=== PATIENT | male | born 1990 | race Caucasian/White ===

== ENCOUNTER 2020-09-28 16:16 | Emergency (ER) | payer BC, OTHER ==
[~2020-09-28] VITALS: Ht 177.8 cm; Wt 72.7 kg
[2020-09-28 19:25] VITALS: BP 115/69
== END 2020-09-28 19:26 | disposition home or self-care (01) ==
LOC: M ED 16:16
DX: F43.0 Acute stress reaction (principal); F15.10 Other stimulant abuse, uncomplicated; F12.20 Cannabis dependence, uncomplicated; Z88.0 Allergy status to penicillin; Z91.010 Allergy to peanuts; Z91.012 Allergy to eggs; Z91.018 Allergy to other foods

== ENCOUNTER → 2021-05-31 | Outpatient (REF) ==
[2021-05-31 18:31] LABS: INFLUENZA A AMPLIFICATION NEGATIVE (NEGATIVE); INFLUENZA B AMPLIFICATION NEGATIVE (NEGATIVE)
== END ==
LOC: M LAB 09:22